=== PATIENT | female | born 1955 | race Hispanic/Latino ===

== ENCOUNTER 2018-01-28 19:50 | Emergency (ER) | payer SELFPAY ==
[2018-01-28] MEDS ORDERED: Midazolam HCl 5 mg/ml Vial ONE (19:59)
[2018-01-28] MEDS ORDERED: Propofol 1,000 MG/100 ML VIAL IV ONE (19:59)
[2018-01-28 20:02] LABS: #Basophils 0.1 thou/uL (0.0-0.2); #Eosinphils 0.2 thou/uL (0.0-0.7); #Monocytes 0.8 thou/uL (0.11-0.59); #Neutrophils 7.6 thou/uL (1.40-6.50); %Eosinophils 1.7 % (0.0-10.0); %Lymphocytes 31.1 % (21.0-51.0); %Monocytes 6.5 % (0.0-10.0); %Neutrophils 59.6 % (42.0-75.0); Hemoglobin 12.6 g/dL (12.0-16.0); Mean Corpuscular HGB CONC 33.2 g/dL (32.0-36.0); Mean Corpuscular Hemoglobin 29.3 pg (27.0-31.0); Mean Corpuscular Volume 88.4 fl (81.0-99.0); Mean Platelet Volume 7.9 fL (7.4-10.4); Platelet Count 281 thou/uL (130-400); RBC Distribution Width 12.9 % (11.5-14.5); Red Blood Cell (RBC) Count 4.29 mill/uL (4.20-5.40); White Blood Cell (WBC) Count 12.8 thou/uL (4.8-10.8)
[2018-01-28 20:11] LABS: PTT 23.3 SEC (22.9-36.1); Prothrombin Time 13.1 SEC (12.0-14.7)
[2018-01-28] MEDS ORDERED: Midazolam HCl 2 mg/2 ml Vial ONE (20:15)
[2018-01-28 20:16] LABS: ALT (SGPT) 32 U/L (8-55); AST (SGOT) 28 U/L (5-34); Alkaline Phosphatase 124 U/L (40-150); Anion Gap 16 mmol/L (10-20); BUN (Urea Nitrogen) 21 mg/dL (9.8-20.1); Bilirubin, Total 0.2 mg/dL (0.2-1.2); Calc. Creatinine Clearance 0 mL/min (70-130); Calcium 9.2 mg/dL (7.8-10.44); Carbon Dioxide 20 mmol/L (23-31); Chloride 102 mmol/L (98-107); Estimated GFR-MDRD 42; Globulin 3.9 g/dL (2.4-3.5); Glucose 389 mg/dL (80-115); Potassium 4.3 mmol/L (3.5-5.1); Protein, Total 7.9 g/dL (6.0-8.3); Sodium 134 mmol/L (136-145)
[2018-01-28] MEDS ORDERED: Adacel (T-DAP) 0.5 ML VIAL ONE (20:26)
[2018-01-28] MEDS ORDERED: CEFAZOLIN/Water 2 GM/20 ML SYRINGE ONE (20:26)
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
[2018-01-28 20:44] LABS: Bilirubin Negative (Negative); Blood, Urine Trace (Negative); Clarity CLEAR (Clear); Glucose, Urine (Dipstick) >=1000 mg/dL (Negative); Leukocyte Trace (Negative); Nitrite Positive (Negative); Protein, Urine (Dipstick) 100 mg/dL (Neg-Trace); Specific Gravity, Urine 1.023 (1.002-1.036); Urobilinogen 0.2 mg/dL (0.2-1.0); pH, Urine 5.5 (5.0-9.0)
[2018-01-28 20:46] LABS: Bacteria/HPF 4+ HPF (None Seen); Hyaline Casts/LPF 0-3 HYALINE CAST LPF (0-3 Hyaline); Pathc Cast-AUWi Flag 0.43 (0-2.49); RBC/HPF 0-3 HPF (0-3); Squamous Epithelial 0-3 HPF (0-3)
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
[2018-01-28 21:38] LABS: Actual Bicarbonate (HCO3a) 22.8 mEq/L (22-26); Base Excess (BEa) -1.2 mEq/L (0 (+/-) 2.5); CO2 Tension 35.4 mmHg (35.0-45.0); Hematocrit-ABG 36.6 % (36.0-47.0); Hemoglobin (Hb) 11.2 g/dL (12.0-16.0); O2 Tension (PaO2) 273.1 mmHg (80.0-100.0); pH, Arterial 7.43 (7.35-7.45)
[2018-01-28 21:39] LABS: Analyzer IN Cardio ER; Calcium, Ionized 1.2 mmol/L (1.12-1.30); Puncture Site RRA
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
--- NOTE | 2018-02-06 17:02 | EKG ---
Test Reason : Blood Pressure : / mmHG Vent. Rate : 125 BPM Atrial Rate : 125 BPM P-R Int : 126 ms QRS Dur : 088 ms QT Int : 326 ms P-R-T Axes : 005 071 049 degrees QTc Int : 470 ms Sinus tachycardia Otherwise normal ECG Confirmed by ANA M JACOBS, MARIAA ([id number]), editorial cartoonist GAL ARTIS ([id number]) on 02/06/2018 5:02:36 PM Referred By: Confirmed By:MARIAA VIRAMONTES MD
== END 2018-01-28 21:50 | disposition short-term general hospital (02) ==
LOC: ERS 19:50
DX: T22.212A Burn of second degree of left forearm, initial encounter (principal); T25.222A Burn of second degree of left foot, initial encounter; E10.9 Type 1 diabetes mellitus without complications; E03.9 Hypothyroidism, unspecified; I10 Essential (primary) hypertension; E78.5 Hyperlipidemia, unspecified; X10.2XXA Contact with fats and cooking oils, initial encounter; Y93.G3 Activity, cooking and baking
CPT/HCPCS: 31500; 36415; 51702; 71045; 80053; 81003; 81015; 82150; 82805; 85025; 85610; 85730; 86850; 86900; 86901; 90471; 90715; 93005; 94002; 94760; 96360; 96365; 96375; G0390; J2250; J2704

== ENCOUNTER 2018-09-21 12:07 | Emergency (ER) | payer OTHER, SELFPAY | END 2018-09-21 12:31 | disposition home or self-care (01) | LOC: ERS 12:07 | DX: L03.313 Cellulitis of chest wall (principal); T21.21XD Burn of second degree of chest wall, subsequent encounter; E11.9 Type 2 diabetes mellitus without complications; E03.9 Hypothyroidism, unspecified; E78.5 Hyperlipidemia, unspecified; I10 Essential (primary) hypertension | CPT/HCPCS: 99283 ==